=== PATIENT | female | born 1985 | race African-American/Black ===

== ENCOUNTER 2017-12-31 12:02 | Outpatient (CLI) | payer OTHER ==
--- NOTE | 2017-12-31 14:30 | RAD ---
LEFT WRIST THREE VIEWS: History: Left wrist pain. FINDINGS: Scaphoid waist and ulnar styloid are intact. No acute fracture, dislocation, or aggressive osseous er osions. IMPRESSION: No acute osseous abnormalities are demonstrated. POS: [facility]
--- NOTE | 2017-12-31 14:42 | RAD ---
SCOLIOSIS EXAM: History: Back pain. Scoliosis. FINDINGS: There are twelve thoracic type vertebrae and five lumbar type vertebrae. Pedicles are intact. Measured from T6 to L1, there is 39 degree rightward convex curvature. Measured from L1 to L5, there is 20 degree leftward convex curvature. IMPRESSION: Pronounced scoliotic curvature of the thoracolumbar spine. Appearance is similar to the thoracic spin e radiograph from 2007. POS: [facility]
== END 2017-12-31 12:03 | disposition home or self-care (01) ==
LOC: NAV RAD 12:02
PROVIDERS: ATTEND Nurse Practitioner Family
DX: M25.532 Pain in left wrist (principal); M41.9 Scoliosis, unspecified
CPT/HCPCS: 72081

== ENCOUNTER 2018-11-12 14:17 | Emergency (ER) | payer OTHER, SELFPAY ==
--- NOTE | 2018-11-12 15:05 | RAD ---
XR Knee Lt 4 View STANDARD HISTORY: Injured knee running COMPARISON: None. FINDINGS: There are no signs of fracture, dislocation or joint effusion. If internal derangement is c linically suspected MRI is recommended. IMPRESSION: No acute findings.
== END 2018-11-12 15:27 | disposition home or self-care (01) ==
LOC: NAV ERS 14:17
DX: S83.412A Sprain of medial collateral ligament of left knee, initial encounter (principal); D64.9 Anemia, unspecified; W18.42XA Slipping, tripping and stumbling without falling due to stepping into hole or opening, initial encounter

== ENCOUNTER 2019-03-31 15:30 | Emergency (ER) | payer OTHER, SELFPAY ==
--- NOTE | 2019-03-31 16:28 | RAD ---
LEFT FOOT THREE VIEWS: 03/31/19 HISTORY: Left foot pain. FINDINGS/IMPRESSION: No fracture, dislocation or bony destruction seen. POS: [facility]
== END 2019-03-31 16:45 | disposition home or self-care (01) ==
LOC: NAV ERS 15:30
DX: S93.602A Unspecified sprain of left foot, initial encounter (principal); M72.2 Plantar fascial fibromatosis; D64.9 Anemia, unspecified; X50.9XXA Other and unspecified overexertion or strenuous movements or postures, initial encounter

== ENCOUNTER 2019-11-29 11:46 | Emergency (ER) | payer MEDICAID, OTHER ==
[2019-11-29] MEDS ORDERED: Sodium Chloride 0.9% 1,000 ML ONE (12:14)
[2019-11-29] MEDS ORDERED: Ketorolac Tromethamine 30 MG/ML VIAL ONE (12:14)
[2019-11-29] MEDS ORDERED: Metoclopramide HCl 10 MG/2 ML VIAL ONE (12:14)
[2019-11-29] MEDS ORDERED: Ondansetron PF 4 MG/2 ML Vial ONE (12:14)
[2019-11-29] MEDS ORDERED: diphenhydrAMINE 50 MG/ML VIAL ONE (12:14)
--- NOTE | 2019-11-29 13:14 | CT ---
EXAM: CT brain without contrast HISTORY: Left headache COMPARISON: None TECHNIQUE: Multiple contiguous axial images were obtained and a CT of the brain without contrast. FINDINGS: The brain is normal in morphology and attenuation without focal lesions or confluent areas of infarction. There is no evidence of hydrocephalus, intracranial hemorrhage, or extra-axial fluid collection. The calvarium and overlying soft tissues are unremarkable. The visualized paranasal sinuses and masto id air cells are well aerated. IMPRESSION: No evidence of acute intracranial abnormality
[2019-11-29 13:34] LABS: Pregnancy Test - Urine (BHCG) Negative (Negative); Pregu Control Background? CLEAR/WHITE (CLR/WHITE); Pregu Control Bar Appear? YES (CONTROL BAR); Specific Gravity 1.024 (1.002-1.036)
== END 2019-11-29 13:25 | disposition home or self-care (01) ==
LOC: NAV ERS 11:46
DX: G43.909 Migraine, unspecified, not intractable, without status migrainosus (principal); I10 Essential (primary) hypertension; D64.9 Anemia, unspecified
CPT/HCPCS: 70450; 81025; 96365; 96375; J1200; J1885; J2405; J2765; J7050

== ENCOUNTER 2025-04-06 21:17 | Emergency (ER) | payer OTHER, SELFPAY | END 2025-04-06 22:00 | disposition home or self-care (01) | LOC: NAV ERS 21:17 | DX: J02.9 Acute pharyngitis, unspecified (principal) | CPT/HCPCS: 87081; 87430; 99283 ==